=== PATIENT | male | born 1960 | race Caucasian/White ===

== ENCOUNTER 2024-05-26 17:08 | Emergency (ER) | payer BC, SELFPAY ==
[2024-05-26 17:23] VITALS: BP 120/77; PULSE 75; RESP 16; TEMP 36.7; O2SAT 96; BMI 26.8
--- NOTE | 2024-05-26 17:37 | XR_ITS ---
Examination: Shoulder,right, 3 views Technique: Shoulder AP internal rotation, AP external rotation, Y view shoulder, 3 views Exam date and time :May 26, 2024 1753 hrs. Indications: Patient fell today with injury to the shoulder, shoulder pain. Findings: Moderate to advanced osteoarthritis glenohumeral joint No shoulder fracture or dislocation No significant separation Impression: Moderate to advanced osteoarthritis glenohumeral joint
--- NOTE | 2024-05-26 17:39 | EDNOTE_ITS ---
<Statement entered by Filomena Cardozo MD - 05/27/24 11:53> As co-signing physician, I was present and available for consult prn. I concur with the plan and care as documented by the midlevel provider. Upper Extremity Injury RME/HPI General Chief Complaint: Extremity Injury, Upper Stated Complaint: RIGHT SHOULDER INJURY; THINK I DISLOCATED Time Seen by Provider: 05/26/24 17:15 Arrival date/time: 05/26/24 17:08 RME / HPI RME / HPI narrative: 64-year-old male presents with complaint of right shoulder pain post fall. Patient states he fell and landed on his elbow, pushing his right shoulder upward. States his right shoulder feels different than his left shoulder. No other pain or injuries. No head injury or LOC. Related Data Home Medications ?Medication ?Instructions ?Recorded ?Confirmed alprazolam 0.5 mg tablet (Xanax) 0.5 mg PO BID PRN Anx iety #0 tabs 10/11/15 06/27/22 Held on 06/27/22. Instructions: Resume on 06/28/22. atorvastatin 40 mg tablet (Lipitor) 40 mg PO HS #0 tab s 10/11/15 06/27/22 cetirizine 10 mg tablet (Aller-Naldo) 10 mg PO QDAY ##0 10/11/15 06/27/22 venlafaxine 75 mg tablet 75 mg PO BID #0 tabs 6 06/27/22 coenzyme Q10 10 mg capsule (Co 10 mg PO TID 07/04/18 0 06/27/22 Q-10) fluticasone propionate 50 2 spray intranasal QDAY 06/1406/27/22 mcg/actuation nasal spray,suspension glucosamine HCl 1,500 mg tablet 1,500 mg PO QDAY 07/0406/27/22 krill 1,000 mg-omega-3 230 mg-dha 1 cap PO QDAY 06/27/22 60 nk-nrp-lgjfhcmci-astaxan capsule (MegaRed [place]-3 Krill Oil) aspirin 81 mg tablet,delayed 81 mg PO QDAY 06/27/22 release Previous Rx's ?Medication ?Instructions ?Recorded omeprazole 40 mg capsule,delayed 40 mg PO QDAY #30 cap s 11/18/18 release Allergies Allergy/AdvReac Type Severity Reaction Status Date / Time gluten Allergy Mild Abdominal Verified 05/26/24 17:09 Pain Review of Systems Review of Systems Systems Reviewed: All systems reviewed, normal except as documented Past Medical History Family History OTHER FAMILY HX: Family history was significant for diabetes, asthma, coronary artery disease Social History SMOKING STATUS: Never smoker SUBSTANCE USE: does not use ALCOHOL FREQUENCY: A Few Times a Month ED Exam Narrative Physical exam: Constitutional: no acute distress, age appropriate, non-toxic Eyes: conjunctivae w/o pallor, EOMI HENT: normocephalic, atraumatic. Respiratory Effort: no stridor, effort normal, no tachypnea MSK: Right shoulder tender to palpation, range of motion intact, radial pulse 2+ Skin: warm, dry; No rash Neurology: alert, oriented X 4. Normal gait Psychology: cooperative, normal mood Course Quality Measures none Orders Category Date Time Status sling [Splint / Immobilizer] STAT Care 05/26/24 19:46 Active XR shoulder RT min 2V Stat Exams 05/26/24 17:37 Completed Vital Signs Vital signs: Vital Signs Temperature 98.1 F 05/26/24 17:23 Pulse Rate 75 05/26/24 17:23 Respiratory Rate 16 05/26/24 17:23 Blood Pressure 120/77 05/26/24 17:23 Pulse Oximetry (%) 96 05/26/24 17:23 Oxygen Delivery Method Room Air 05/26/24 17:23 Extremity Injury MDM Narrative MDM Narrative:: Patient presented with right shoulder pain after a fall. Differential diagnoses include humerus fracture, dislocation, sprain, clavicle fracture X-ray obtained and shows no fracture or dislocation of the right shoulder. No clavicle fracture. Patient likely has a sprain of his shoulder. Sling was applied. Counseled patient on RICE care. Recommended follow-up with PCP in the next 3 to 5 days. Return to ED precautions given. Patient data External records reviewed:: [facility] previous records Clinical information provided by:: patient Social determinants that could affect healthcare access:: none Patient has the following chronic illnesses:: See PMH section How is presenting disease/condition affected by chronic disease/condition?: uneffected by Evaluation data The following diagnostics were reviewed and interpreted by me:: radiology exam(s) Lab and/or radiology exams considered but not ordered:: None Interpretation Summary: X-ray of the right shoulder shows degenerative changes, no fracture or dislocation. My independent interpretation. Medications / Prescriptions Medications or Prescriptions considered but not ordered:: N/A Medication administrations:: N/A Consultations Consultation(s) initiated? (list below): No Diagnosis Upper Extremity Injury Differential Diagnosis: dislocation of shoulder, fracture of humerus, fracture of clavicle and other (Shoulder sprain) Most likely diagnosis given after review of the tests above:: Shoulder sprain Admission Indicated Admission indicated?: not indicated Admission Request Was there a request for admission?: No Disposition Plan Disposition Plan: Discharge Discharge Attestation Discharge Attestation: The patient and all family members were given an opportunity to ask questions and understood the discharge instructions. Discharge instructions specifically effects, indications for sooner follow up or return to the emergency department, and the expected course of current diagnosis. Patient condition: Stable Discharge Plan Plan Patient Disposition: HOME (Self Care) Prescriptions/Referrals Prescriptions/Med Rec: No Action fluticasone propionate 50 mcg/actuation spray,suspension 2 spray INTRANASAL QDAY [id number] [MegaRed [place]-3 Krill Oil] 1,000-230-60 mg capsule 1 cap PO QDAY coenzyme Q10 [Co Q-10] 10 mg capsule 10 mg PO TID glucosamine HCl 1,500 mg tablet 1,500 mg PO QDAY atorvastatin [Lipitor] 40 MG tablet 40 mg PO HS Qty: 0 venlafaxine 75 mg Tablet 75 mg PO BID Qty: 0 cetirizine [Aller-Naldo] 10 MG tablet 10 mg PO QDAY Qty: 0 alprazolam [Xanax] 0.5 MG tablet 0.5 mg PO BID PRN (Reason: Anxiety) Qty: 0 omeprazole 40 mg capsule,delayed release(DR/EC) 40 mg PO QDAY Qty: 30 0RF aspirin 81 mg Tablet,Delayed Release (Dr/Ec) 81 mg PO QDAY Referrals: Justina Mast MD [Primary Care Provider] - In 1 week Problem List Clinical Impression: Sprain of right shoulder Patient/Caregiver Discharge Instructions Education Materials: ED Shoulder Sprain Additional Instructions: Wear the sling until follow-up with your PCP in the next 3 to 5 days. Ice the shoulder several times a day for 10 to 15 minutes at a time. You can take OTC Tylenol as needed for pain. Return to the ED for new or worsening symptoms. Print Language: Albanian Stand Alone Forms: Tammy Award Info., Patient Portal Info Letter
[2024-05-26 20:24] VITALS: RESP 18
== END 2024-05-26 20:25 | disposition home or self-care (01) ==
PROVIDERS: Emergency Provider Emergency Medicine; PCP Family Medicine
DX: S43.401A Unspecified sprain of right shoulder joint, initial encounter (principal); W19.XXXA Unspecified fall, initial encounter
CPT/HCPCS: 73030; 99283; A4565